=== PATIENT | female | born 1945 | race Caucasian/White ===

== ENCOUNTER 2016-06-02 07:40 | Day surgery (SDC) | payer MEDICARE ==
[~2016-06-02] VITALS: Ht 175.3 cm; Wt 81.7 kg
[~2016-06-02 07:40] MED LIST: ACET1TAB42 PO; ASPI-973 PO; CETI10CA PO; CHOL40003 PO; CYAN1TAB42 PO; CYCL10TA9 PO; EPIN0.3P2 IJ; FLUT16SP NS; GABA-504 PO; HYDR-4003 PO; HYDR-656 PO; KLO2T PO; LEVO88TA4 PO; LISI-567 PO; LOVA40TA PO; Lactated Ringer's 1,000 ML IV ONE; MELA1TAB10 PO; MELO-259 PO; OMEP20CA11 PO; PROZ20 PO; SCOP1PAT TD; TIZA4CAP8 PO; TRAZ-115 PO
[2016-06-02] MEDS ORDERED: Propofol 10,000 mCg/mL 20 mL Inj ONE (07:41)
[2016-06-02 07:58] VITALS: BP 140/75; PULSE 69; RESP 16; O2SAT 99
[2016-06-02] MEDS ORDERED: Lactated Ringer's 1,000 ML IV SCH (08:32)
[2016-06-02] MEDS ORDERED: Ondansetron 2 mg/mL 2 mL Inj IVPUSH PRN (08:35)
[2016-06-02] MEDS ORDERED: MetoCLOpramide 5 mg/mL 2 mL Inj IVPUSH PRN (08:35)
[2016-06-02 09:05] VITALS: BP 136/75; PULSE 78; RESP 14; O2SAT 96
[2016-06-02 09:14] VITALS: BP 147/76; PULSE 73; RESP 14; O2SAT 98
[2016-06-02 09:19] VITALS: BP 157/78; PULSE 70; RESP 14; O2SAT 100
--- NOTE | 2016-06-02 10:39 | ENDO ---
[address] [address] ENDOSCOPY PROCEDURE PATIENT: TAMICA JUÁREZ : 1945 MR#: [id number] ADMIT: 06/02/2016 JOB ID: [id number] TYPE OF OPERATION: Esophagogastroduodenoscopy with biopsy was esophageal dilatation and colonoscopy. PREOPERATIVE DIAGNOSIS: Dysphagia and colorectal cancer. POSTOPERATIVE DIAGNOSIS(ES): 1. Normal upper endoscopy, status post biopsy and pre 18-20 mm balloon dilatation in serial fashion. 2. Sigmoid diverticulosis. 3. Small internal hemorrhoids. ANESTHESIA: Monitored anesthesia care. COMPLICATIONS: None. BLOOD LOSS: Minimal. DESCRIPTION OF PROCEDURE: After risks and benefits were explained the patient informed consent was obtained. After anesthesia was administered, upper endoscope was inserted into the mouth, intubated into the esophagus, stomach, and second portion of duodenum. Mucosa carefully examined. After procedure was done, the scope was withdrawn, procedure terminated. Colonoscope was inserted per rectum to cecum. Mucosa carefully examined. Prep of the patient was fair to suboptimal. After procedure was done, the scope withdrawn, and procedure terminated. FINDINGS: 1. Upon inspection of the esophagus, the esophagus was normal without masses, ulcers, or lesions. Z-line located at 40 cm from incisors. Upon entering the stomach, the stomach was also normal without masses, ulcers, or lesions. Retroflexion normal. Duodenal bulb 1st and 2nd portion normal. biopsy taken at antrum, stomach, and distal esophagus. Afterwards a Crede TTS balloon inserted and dilatation performed in serial fashion from 18 to 20 mm with good mucosal tear. 2. Upon inspection of the anus no masses, hemorrhoids, or ulcers were seen throughout the entire examination. There is mild sigmoid diverticulosis that was seen. No polyps or masses were seen. Retroflexion revealed small internal hemorrhoids. IMPRESSION: 1. Small internal hemorrhoids. 2. Mild sigmoid diverticulosis. 3. Normal upper endoscopy, status post biopsy and esophageal dilatation to 20mm RECOMMENDATION: 1. Await pathology results. 2. Repeat colonoscopy in 5 years given the prep of the patient. 3. Follow up in GI clinic as needed. [place]
--- NOTE | 2016-06-02 16:46 | PCM.HPANE ---
Patient Data Surgeon Admitting Provider: Attending Provider:Tommy Arnett MD Primary Care Physician:Katherin Dumont MD Other Provider:[facility] Anesthesia Reason for Visit Screening, Dysphagia Ht/WT & BMI Body Mass Index Allergies Coded Allergies: Penicillins (Verified Allergy, Severe, HIVES, 06/02/16) Sulfa (Sulfonamide Antibiotics) (Verified Allergy, Severe, SWELLING, ) furosemide (Verified Allergy, Unknown, UNKNOWN, 06/02/16) gentamicin (Unverified Allergy, Unknown, 06/02/16) ENTERED FROM UNCODED ALLERGIES latex (Verified Allergy, Unknown, UNKNOWN, 06/02/16) shellfish derived (Verified Allergy, Unknown, UNKNOWN, 06/02/16) tobramycin (Verified Allergy, Unknown, UNKNOWN (TOPICAL TOBRAMYCIN), 06/02) Uncoded Allergies: GENTAMYCIN (Allergy, Severe, ANAPHYLAXIS (TOPICAL GENTAMYCIN), 01/21/15) Past Anesthesia History Anesthesia History: Denies:: Abnormal Airway, Anesthesia Reactions, Difficult Intubation, Fam Anesthesia Reaction, Fam Malignant Hypertherm, Malignant Hyperthermia Diabetes History Hx Diabetes?: No MRSA MRSA: No Medications Blood Thinner: Aspirin, Coumadin Reported Medications Fluoxetine (Prozac)20 Mg Kaepxol91 Mg PO DAILY Ref 0 06/01/16 Melatonin (Melatonin 1 mg Tablet)1 Each Tablet1 Mg PO HS Ref 0 06/01/16 Lisinopril 20 Mg Mtbyzz38 Mg PO BID 30 Days Ref 0 06/01/16 Cyclobenzaprine 10 Mg Ehvoyz33 Mg PO HS PRN Spasm Ref 0 06/01/16 Aspirin 81 Mg Mcdgae05 Mg PO DAILY Ref 0 06/01/16 Acetaminophen/Codeine 300-30mg 1 Each Tablet1 Tablet PO Q4H PRN Pain Ref 0 06/01/16 Cetirizine HCl (Zyrtec)10 Mg Slnkrln58 Mg PO HS PRN allergy sx #30 CAPSULE Ref 0 09/05/15 Cholecalciferol (Vitamin D3) (Vitamin D3)4,000 Unit Capsule4,000 Unit PO DAILY 09/05/15 Cyanocobalamin/Folic Acid (Vitamin W84-Ehoes Acid Tablet)1 Each Tablet1 Each PO DAILY 09/05/15 Trazodone 50 Mg Jwozty75 Mg PO HS Ref 0 09/05/15 Tizanidine 4 Mg Capsule4 Mg PO Q8H PRN For Spasm 09/05/15 Omeprazole 20 Mg Capsule.dr20 Mg PO DAILY Ref 0 09/05/15 Lovastatin 40 Mg Uazvqv34 Mg PO HS #30 TABLET Ref 0 09/05/15 Levothyroxine 88 Mcg Yhnuxz16 Mcg PO DAILY Ref 0 09/05/15 Gabapentin 400 Mg Xoraygl332 Mg PO TID Ref 0 09/05/15 Fluticasone Propionate (Fluticasone Propionate Nasal)16 Gm [place].susp1 [place] NS BID PRN allergy sx #16 GM Ref 0 09/05/15 Epinephrine (Epipen 2-Camilo)0.3 Mg/0.3 Ml Auto.injct0.3 Mg IJ PRN For Anaphyllaxis 09/05/15 Clonazepam 2 Mg Tablet1.25 Tab PO HS PRN For Anxiety Ref 0 09/05/15 Discontinued Reported Medications Scopolamine (Transderm-Scop)1 Each Patch.td721 Each TD 06/01/16 Meloxicam 7.5 Mg Tablet7.5 Mg PO BID 30 Days Ref 0 06/01/16 Hydrocodone-Acetaminophen 5-325 mg 1 Each Tablet1 Tablet PO Q4H PRN For Pain Ref 0 06/01/16 hydrOXYzine Hcl (HydrOXYzine Hcl)25 Mg Iumrmx38-57 Mg PO HS PRN Insomnia Ref 0 09/05/15 Fluoxetine 20 Mg Bfpomf48 Mg PO DAILY Ref 0 09/05/15 Warfarin Sodium 2.5 Mg Tablet2.5 Mg PO Wed, 30 Days Ref 0 09/05/15 Warfarin Sodium (Coumadin)5 Mg Tablet5 Mg PO 5 x weekly 30 Days Ref 0 09/05/15 Discontinued Scripts oxyCODONE-Acetaminophen 10-325 mg 1 Each Tablet1 Tablet PO Q4H PRN For Pain #60 TABLET Prov:Pedro Pablo Radford MD 09/13/15 [Clotrimazole] (Mycelex 1% Cream)1 APPLIC/0.25 GM CREAM No Conflict Check1 Applic TOPICAL PRN PRN For Itching #30 Prov:Pedro Pablo Radford MD 09/13/15 [Senna/Docusate Sodium] (Senokot S)1 TABLET TABLET No Conflict Check1 Tablet PO BID PRN For Constipation #60 Prov:Pedro Pablo Radford MD 09/13/15 History History of ENT Problems?: Yes HEENT History: Positive for:: Cataracts Dysphagia (hx of schatzkis ring) Sinus Problem (seasonal allergies) TMJ Denies:: Abnormal Airway Difficult Intubation Hearing Problem Hx of Heart Problems?: Yes Cardiovascular History: Positive for:: Hypertension Thrombophlebitis (bilateral PE 01/2015) Denies:: AICD Atrial Fibrillation Chest Pain Pacemaker Valvular Heart Disease Hx of Respiratory Problem?: Yes Respiratory History: Positive for:: Pulmonary Embolism (bilateral 01/2015) Use of C-PAP Machine Denies:: Asthma COPD Cough Hemoptysis Oxygen Administration Pneumonia Tuberculosis Hx Neurologic Problems?: Yes Neurological History: Positive for:: Dizziness Headaches Denies:: CVA Dementia Seizures Hx of GI Problems?: Yes Gastrointestinal History: Positive for:: Gastroesphageal Reflux Denies:: Cirrhosis Diverticulitis Hiatal Hernia Rectal Bleeding Hx of Problems?: No Genitourinary History: Denies:: Kidney Stones Urinary Tract Infection Female Hx: Denies:: Currently Problems with Breasts? Skin History: Denies:: History Skin Disorders? 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) Musculoskeletal Trauma (right knee current admission problem) Denies:: Back Injury Systemic Lupus Hx of Psycho/Social Problems?: Yes Psycho Social History: Positive for:: Hx Depression Denies:: Anxiety Hx Surgeries?: Yes (Left TKA, hyst, bilateral cataracts) Hx Any Other Health Problems?: Yes Other History: Positive for:: Endocrine Disease (Sjogrens syndrome) Thyroid Disease Denies:: Cancer Hospitalization History Blood Transfusions: Denies:: Blood Transfusions Hx Diabetes: No Hx Alcohol Use: NoHx Substance Use: No Smoking Status: Never Smoker Have You Smoked inLast 12 mo: No Stop/Bang Risk Assessment Category Category 1A: Patient has history of documented sleep apnea, and HAS NOT received any narcotic, sedative or anesthesia administration during this stay. Category 1B: Patient has history of documented sleep apnea, and HAS received any narcotic , sedative or anesthesia administration during this stay Category 2: Patient has SUSPECTED Obstructive Sleep Apnea, and HAS received any narcotic , sedative or anesthesia administration during this stay. Category 3: Patient has SUSPECTED Obstructive Sleep Apnea and HAS NOT received narcotic, sedative or anesthesia administration during this stay. Category 4: Outpatient in Procedural Areas with known sleep apnea or who screen positive for High Risk via the STOP/BANG questionnaire. Exam Exam General Appearance: Alert, Oriented X3, Cooperative, No Acute Distress HEENT/AIRWAY: MP 2, Neck Movement (FROM), Mouth Opening (3 FBMO) Lungs: Clear to Auscultation, Normal Air Movement Heart: Exam Unremarkable, Regular Rate/Rhythm, No Murmurs/Rubs/Gallops Plan Impression Patient chart reviewed, patient interviewed and anesthestic plan with risks, benefits, and alternatives discussed, and informed consent obtained. NPO Status: 01/22 at 1800 ASA Physical Status: ASA3 Severe Disease (fibromyalgia) Anesthetic Plan: MAC Bene/Risks/Altern/Consents: Yes HP Complete Prior to Induction: Yes Ozzie Mistry MD Jun 02, 2016 07:39
--- NOTE | 2016-06-02 16:46 | PCM.ANEP1 ---
Post Anesthesia Phase 1 PACU Phase 1 Assessment Vital Signs Vital Signs Date Time Temp Pulse Resp B/P Pulse Ox O2 Delivery O2 Flow Rate FiO2 06/02/16 09:19 70 14 157/78 100 Room Air 06/02/16 09:14 73 14 147/76 98 Room Air 06/02/16 09:05 78 14 136/75 96 Room Air Anesthetic Administered: MAC Level of Alertness: Awake, talking ALLEN's with Equal Strength: Yes Pain: No Nausea or Vomiting: No Cardiovascular Function and Hy: No Oxygen Delivery: Room Air Lungs: Clear to Auscultation, Normal Air Movement Dermatome Level: Full Sensation Complications: No Follow up Care: No Ozzie Mistry MD Jun 02, 2016 16:46
--- NOTE | 2016-06-04 18:17 | PATH ---
SURGICAL PATHOLOGY Attending Physician:Tommy Arnett MD CASE STATUS: Signed Out PATIENT NAME: TAMICA JUÁREZ PID: [id number] : 1945 DATE COLLECTED:06/02/2016 18:20 SPECIMEN: 1: Stomach, Antrum, Biopsy 2: Gastric, Biopsy 3: Esophagus, Biopsy 4: Esophagus, Biopsy CLINICAL HISTORY: 1). ANTRUM BIOPSIES 2). GASTRIC BODY BIOPSIES 3). MID ESOPHAGUS BIOPSIES 4). DISTAL ESOPHAGUS BIOPSIES FINAL DIAGNOSIS: 1. Gastric Antrum, Biopsy: Gastric antral mucosa with mild chronic gastritis. Negative for H. pylori organisms by immunohistochemistry studies; the control tissue stained appropriately. Negative for dysplasia and malignancy. 2. Gastric Biopsy: Gastric body-type mucosa with no diagnostic abnormality. Negative for Helicobacter organisms by H&E stain. Negative for intestinal metaplasia, dysplasia, and malignancy. 3. Mid Esophagus, Biopsy: Squamous mucosa with no diagnostic abnormality. Intraepithelial eosinophils are not increased. Negative for dysplasia and malignancy. 4. Distal Esophagus, Biopsy: Squamocolumnar junctional mucosa with no diagnostic abnormality. Negative for intestinal metaplasia. Negative for dysplasia and malignancy. ICD10: K29.7 GROSS DESCRIPTION: The specimen is received in four formalin filled containers labeled with the patient's name. 1). The specimen is sublabeled "antrum" and consists of a 0.4 x 0.3 x 0.2 CM portion of tissue which is entirely submitted in cassette 1A. 2). The specimen is sublabeled "gastric body" and consists of a 0.5 x 0.3 x 0.2 CM portion of tissue which is entirely submitted in cassette 2A. 3). The specimen is sublabeled "midesophagus" and consists of 2 portions of tissue which aggregate to 0.3 x 0.3 x 0.2 CM. The specimen is entirely submitted in cassette 3A. 4). The specimen is sublabeled "distal esophagus" and consists of 2 portions of tissue which aggregate to 0.2 x 0.2 x 0.2 CM. The specimen is entirely submitted in cassette 4A. 06/02/2016 [facility] MICRO DESCRIPTION: IMMUNOHISTOCHEMISTRY: Block 1A: H. pylori: Negative. * This test was developed and its performance characteristics determined by [facility]. It has not been cleared or approved by the U.S. Food and Drug Administration. The FDA has determined that such clearance or approval is not necessary. This test is used for clinical purposes. It should not be regarded as investigational or for research. ICD-9 CODES: CPT CODES: 1: 17595, 72503 2: 93966 3: 82080 4: 19646 Electronically Signed Out Layla Witt MD [facility] Pathology [facility] [address], [place] [address] Technical component performed at [facility], [facility] [address], [place], [address]
== END 2016-06-02 23:59 | disposition home or self-care (01) ==
LOC: END 07:40
PROVIDERS: ATTEND Internal Medicine Gastroenterology
DX: Z12.11 Encounter for screening for malignant neoplasm of colon (principal); K64.8 Other hemorrhoids; K57.30 Diverticulosis of large intestine without perforation or abscess without bleeding; K29.50 Unspecified chronic gastritis without bleeding; R13.10 Dysphagia, unspecified; K22.2 Esophageal obstruction; K44.9 Diaphragmatic hernia without obstruction or gangrene; F32.9 Major depressive disorder, single episode, unspecified; E03.9 Hypothyroidism, unspecified; G47.33 Obstructive sleep apnea (adult) (pediatric); K21.9 Gastro-esophageal reflux disease without esophagitis; M19.90 Unspecified osteoarthritis, unspecified site; M79.7 Fibromyalgia; E78.5 Hyperlipidemia, unspecified; B00.9 Herpesviral infection, unspecified; M35.00 Sjogren syndrome, unspecified; Z79.82 Long term (current) use of aspirin; Z79.01 Long term (current) use of anticoagulants; Z86.711 Personal history of pulmonary embolism; Z96.652 Presence of left artificial knee joint; Z90.710 Acquired absence of both cervix and uterus
CPT/HCPCS: 43239; 43249; 88305; 88342; G0121; J7120